=== PATIENT | female | born 1980 | race Caucasian/White ===

== ENCOUNTER 2023-01-04 09:07 | Emergency (ER) | payer BC, SELFPAY ==
--- NOTE | ~2023-01-04 | CT_ITS ---
EXAMINATION: CT ANGIOGRAM HEAD CT ANGIOGRAM NECK CLINICAL INFORMATION: Loss of vision. COMPARISON: None available. TECHNIQUE: Initial noncontrast box feeder imaging of the head and neck was performed. Noncontrast head CT was also performed. Test bolus sequences followed by intravenous administration 70 mL of Omnipaque 350. Helical imaging was performed in the axial plane from the aortic arch to the skull vertex. Delayed postcontrast imaging of the head was also performed. The data was processed at the cytopathology technologist's workstation for generation of MIP sequences. Angled MIPs and volume rendered reformatted images were also generated at an offline 3D workstation. Stenoses are assessed in accordance with NASCET criteria unless otherwise indicated. This CT examination was performed using dose optimization techniques as appropriate, variously including the following: *Automated exposure control. *Adjustment of mA and/or kV according to patient size (this includes techniques or standardized protocols for targeted exams where dose is matched to indication/reason for exam; i.e. extremities or head). *Use of iterative reconstruction technique. DLP: 2255 mGy-cm FINDINGS: CT Head: There is no evidence of acute intracranial hemorrhage or edematous territorial infarction. Carey-white matter differentiation is preserved. There is no abnormal attenuation within the brain parenchyma. The ventricles are normal in morphology and size. No evidence for obstructive hydrocephalus. No abnormal mass effect or midline shift. No extra-axial fluid collections. No pathologic intra-axial enhancement or regional oligemia. No acute soft tissue or osseous abnormalities. Mild mucosal thickening of the paranasal sinuses. The mastoid air cells and middle ear cavities are clear. CT Neck: Changes of prior thyroidectomy. The remaining cervical soft tissues are within normal limits. Straightening of the normal cervical lordosis. Advanced degenerative disc disease at C5-C6. Moderate degenerative disc disease from C6-T1. Facet and uncovertebral joint arthropathy leads to osseous encroachment on the neural foramina from C5-T1. CT Upper Chest: The visualized lung apices and upper mediastinum are within normal limits. Neck CTA: Aortic Arch: Normal contour and caliber. Classic 3 vessel branching pattern of the aortic arch. Great Vessel Origins: No significant stenosis of the branch origins. Right Common Carotid Artery: No focal stenosis or occlusion. Cervical Right Internal Carotid Artery: Normal opacification without focal stenosis or occlusion. Left Common Carotid Artery: No focal stenosis or occlusion. Cervical Left Internal Carotid Artery: Normal opacification without focal stenosis or occlusion. Cervical Right Vertebral Artery: Co-dominant. No focal stenosis or occlusion. Cervical Left Vertebral Artery: Co-dominant. No focal stenosis or occlusion. Brain CTA: Intracranial Internal Carotid Arteries: No focal stenosis or occlusion. Right Anterior Cerebral Artery: The A1 segment is diminutive. Normal opacification of the distal RISSA segments. Left Anterior Cerebral Artery: Normal A1 segment. Normal opacification of the distal RISSA segments. Anterior Communicating Artery: Normal. Right Middle Cerebral Artery: Normal M1 segment of the MCA without focal stenosis or occlusion. Normal arborization of the distal segments. Left Middle Cerebral Artery: Normal M1 segment of the MCA without focal stenosis or occlusion. Normal arborization of the distal segments. Right Vertebral Artery: Normal V4 segment. Normal opacification of the proximal segments of the posterior inferior cerebellar artery. Left Vertebral Artery: Normal V4 segment. Normal opacification of the proximal segments of the posterior inferior cerebellar artery. Basilar Artery: Normal without focal stenosis or occlusion. Normal appearance of the proximal superior cerebellar arteries. Right Posterior Cerebral Artery: Normal P1 segment. Normal opacification of the distal [employer] segments. Left Posterior Cerebral Artery: Normal P1 segment. Normal opacification of the distal [employer] segments. Right dominant transverse/sigmoid sinuses. The left-sided transverse/sigmoid sinuses are hypoplastic. Otherwise, normal opacification of the superior sagittal, straight, transverse, and sigmoid sinuses. CT/CT angio head neck IMPRESSION: 1. No evidence of acute intracranial hemorrhage or edematous territorial infarction. 2. CTA of the head and neck without proximal occlusion or flow-limiting stenosis.
[2023-01-04 09:17] VITALS: BP 123/73; PULSE 60; RESP 18; TEMP 36.7; O2SAT 99; BMI 23.4
--- NOTE | 2023-01-04 09:58 | ED_ITS ---
HPI - General Adult General Chief complaint: General Medical Stated complaint: Loss vision R eye/Dizziness Time Seen by Provider: 01/04/23 09:57 Source: patient Mode of arrival: ambulatory Limitations: no limitations History of Present Illness HPI narrative: Patient was getting mail, got dizzy felt off balance and then noticed she couldn't see out of her right eye but the left eye was also blurry lasting 7 minutes. Patient continued to stand leaned over the chair. she felt like her she saw white when her eye was closed. Then both eyes cleared up, no residual headache. This happened 2 years ago patient had a head CT and saw the eye doctors and found nothing. Denies weakness or numbness to one side. Patient has had headaches once a month. Onset (ago): minute(s) Severity: mild Related Data Allergies Allergy/AdvReac Type Severity Reaction Status Date / Time codeine Allergy Hives Verified 01/04/23 09:19 Review of Systems 2 Review of Systems: Yes all other systems are reviewed and are negative Neurologic: Denies Sensory deficit (Neuro) [facility] Social History Social History Alcohol intake: current Alcohol intake frequency: a few times a month Smoked in Last 30 Days: No Use of substances other than those prescribed or required for medical reasons: No Advance Directives: Yes Advance Directives Information Provided: Yes Advance Directives on File: No Patient : No Physical Exam ED Vital Signs: Vital Signs - 24 hr 01/04/23 09:17 01/04/23 10:01 01/04/23 12:46 Temperature 98.1 F Pulse Rate 60 56 63 Respiratory Rate 18 18 14 Blood Pressure 123/73 128/74 117/79 Pulse Oximetry 99 100 99 Oxygen Delivery Method Room Air Room Air Room Air BMI result Body Mass Index 23.4 Const General: healthy appearing Nutritional Appearance: average body habitus Orientation/consciousness: oriented to person and patient oriented x3 Limitations: no limitations HENMT Head: Yes normal to inspection Ears: external ears normal General nose exam: Normal external nose present Mouth: Normal oral and palatal mucosa present and oropharynx normal Throat: Yes posterior oropharynx normal Eyes General: appearance normal, both eyes and all related structures Neck Neck: Yes normal visual inspection Chest Chest palpation & inspection: normal inspection of the chest Resp Auscultation: clear to auscultation bilaterally Cardio Jugular venous distension: no JVD Rate: regular rate Rhythm: regular rhythm Heart sounds: S1 normal heart sound present and S2 normal heart sound present GI Inspection: Yes normal to inspection Palpation (GI): Soft to palpation, nontender and No hepatosplenomegaly present Auscultation: normal bowel sounds General: Yes no CVA tenderness Back/Spine/Pelvis Back: no CVA tenderness Skin General skin exam: no rashes or lesions noted Neuro General: oriented to person and patient oriented x3 Cranial nerves: Yes CN's II-XII intact bilaterally Motor exam (neuro): 5/5 motor strength present throughout Sensory Exam: No Sensory deficit (Neuro) Extrem General: Yes normal to inspection Psych Appearance: grossly normal Course Reevaluation(s) Reevaluation #1: in her history patient describes multiple events of ocular migraine, her CTA was negative, no vascular disease will dc home Time: 13:47 Medications Administered Discontinued Medications Generic Name Dose Route Start Last Admin Trade Name Freq PRN Reason Stop Dose Admin Diphenhydramine HCl 25 mg 01/04/23 10:14 01/04/23 11:14 Diphenhydramine Hcl 50 Mg/Ml Vial IVPUSH 01/04/23 10:15 25 mg ONCE ONE Administration Iohexol 100 ml 01/04/23 12:17 01/04/23 12:17 Iohexol 350 Mg/Ml 100 Ml Infus..Btl IV 01/04/23 12:18 70 ml ONCE ONE Administration Methylprednisolone Sodium Succinate 125 mg 01/04/23 10:14 01/04/23 11:15 Methylprednisolone Sod Succ 125 Mg/2 Ml Vial IVPUSH 01/04/23 10:15 125 mg ONCE ONE Administration Medical Decision Making Differential Diagnosis Differential Diagnoses: The differential diagnosis associated with the presentation includes (Stroke, retinal occlusion, occular migraine, near syncope, vasovagal were all considered) Admission/Observation Consideration of admission/observation: Escalation of care including admission/observation considered upon arrival patient was considered for admission Lab Data MDM Lab Attestation statement: I reviewed the patient's lab results. (normal labs, normal wbc) 01/04/23 10:22 01/04/23 10:22 Labs: Lab Results 01/04/23 01/04/23 Range/Units 10:22 10:49 WBC 7.2 (4.8-10.8) X10*3/uL RBC 4.31 (4.20-5.50) X10*6/uL Hgb 13.3 (12.0-16.0) g/dl Hct 38.3 (37.0-47.0) % MCV 88.9 (80.0-98.0) fL MCH 30.9 (27.0-33.0) pg MCHC 34.7 (31.0-35.0) g/dl RDW 11.9 (11.0-16.0) % Plt Count 263 (160-400) X10*3/uL MPV 9.6 (9.4-12.3) fL Immature Gran % (Auto) 0.3 (0.0-0.4) % Neut % (Auto) 72.0 (45-73) % Lymph % (Auto) 17.5 L (20-40) % Mineral % (Auto) 5.7 (2-11) % Eos % (Auto) 3.9 (0-4) % Baso % (Auto) 0.6 (0-2) % Lymph # (Auto) 1.3 (1.2-4.9) X10*3/uL Mineral # (Auto) 0.4 (0.1-1.2) X10*3/uL Eos # (Auto) 0.3 (0.0-0.4) X10*3/uL Baso # (Auto) 0.0 (0.0-0.2) X10*3/uL Abs Immat Gran (auto) 0.02 (0.00-0.03) X10*3/uL Absolute Neuts (auto) 5.2 (2.0-8.3) x10*3/uL Absolute Nucleated RBC 0.000 (0.0-0.012) X10*3/uL Nucleated RBC % (auto) 0.0 (0.0-0.2) /100WBC Sodium 140 (135-145) mmol/L Potassium 4.1 (3.3-5.1) mmol/L Chloride 107 (96-108) mmol/L Carbon Dioxide 24 (22-29) mmol/L Anion Gap 13 (12-20) BUN 10 (9-16) mg/dL Creatinine 0.72 (0.5-1.4) mg/dL Estim Creat Clear Calc 93.3 Estimated GFR > 60 Random Glucose 93 (60-115) mg/dL Calcium 8.9 (8.4-10.2) mg/dL Urine Test NEGATIVE (NEGATIVE) Independent Interpretation I performed an independent interpretation of an: CT Scan (no mass no bleed, djd of spine) Radiology Impression Discussion of test interpretation with radiology: I have reviewed the radiologist's reading. (arteries are normal, no stenosis, no clot) Tests considered The following testing was considered but not selected: MRI of brain and neck were considered but CT scan better test to evaluate the vessels Chronic Conditions Patient?s care impacted by: Other (Migraine) Discharge Plan Discharge Clinical Impression: Ocular migraine Patient Disposition: Home, Self-Care Instructions: Ocular Migraine (ED) Referrals: Physician,Unknown J [Primary Care Provider] - 1 week Interventions: ED Discharge Assessment Last Done: 01/04/23 14:22 Discharge Date/Time: 01/04/23 14:22
--- NOTE | 2023-01-04 09:59 | PC.NURSE ---
pt reports felling suddenly off balance/dizzy while standing, vision loss to the right eye, and blurry vision to left eye. symptoms resolved after a few minutes.
[2023-01-04 10:01] VITALS: BP 128/74; PULSE 56; RESP 18; O2SAT 100
[2023-01-04 10:27] LABS: MANUAL DIFF FLAG NO
[2023-01-04 10:29] LABS: Basophils Percent Auto 0.6 % (0-2); Eosinophils Absolute Auto 0.3 X10*3/uL (0.0-0.4); Eosinophils Percent Auto 3.9 % (0-4); Hematocrit 38.3 % (37.0-47.0); Hemoglobin 13.3 g/dl (12.0-16.0); Imm Gran Abs Auto 0.02 X10*3/uL (0.00-0.03); Imm Gran Pct Auto 0.3 % (0.0-0.4); Lymphocytes Absolute Auto 1.3 X10*3/uL (1.2-4.9); Lymphocytes Percent Auto 17.5 % (20-40); Mean Corpuscular HGB Conc 34.7 g/dl (31.0-35.0); Mean Corpuscular Hemoglobin 30.9 pg (27.0-33.0); Mean Corpuscular Volume 88.9 fL (80.0-98.0); Mean Platelet Volume 9.6 fL (9.4-12.3); Monocytes Absolute Auto 0.4 X10*3/uL (0.1-1.2); Monocytes Percent Auto 5.7 % (2-11); Neutrophils Absolute Auto 5.2 x10*3/uL (2.0-8.3); Platelet Count 263 X10*3/uL (160-400); Red Blood Count 4.31 X10*6/uL (4.20-5.50); Red Cell Distribution Width 11.9 % (11.0-16.0); White Blood Count 7.2 X10*3/uL (4.8-10.8)
[2023-01-04 10:41] LABS: Anion Gap 13 (12-20); Blood Urea Nitrogen 10 mg/dL (9-16); Calcium 8.9 mg/dL (8.4-10.2); Carbon Dioxide 24 mmol/L (22-29); Chloride 107 mmol/L (96-108); Creatinine Clr Calc Pharmacy 93.3; Estimated Glomerular Filt Rate > 60; Glucose Random 93 mg/dL (60-115); Potassium 4.1 mmol/L (3.3-5.1); Sodium 140 mmol/L (135-145)
[2023-01-04 10:58] LABS: UPreg QC Valid YES; Urine Pregnancy NEGATIVE (NEGATIVE)
[2023-01-04] MEDS: diphenhydrAMINE HCL 50 MG/ML VIAL 25 MG IVPUSH (11:14)
[2023-01-04] MEDS: methylPREDNISolone Sod Succ 125 MG/2 ML VIAL IVPUSH (11:15)
[2023-01-04] MEDS: iohexoL 350 MG/ML 100 ML INFUS..BTL IV (12:17)
[2023-01-04 12:46] VITALS: BP 117/79; PULSE 63; RESP 14; O2SAT 99
== END 2023-01-04 14:22 | disposition home or self-care (01) ==
PROVIDERS: Emergency Provider Emergency Medicine
DX: G43.109 Migraine with aura, not intractable, without status migrainosus (principal); H54.61 Unqualified visual loss, right eye, normal vision left eye; R42 Dizziness and giddiness; H53.8 Other visual disturbances; Z79.899 Other long term (current) drug therapy
CPT/HCPCS: 36415; 70496; 70498; 80048; 81025; 85025; 96374; 96375; 99284; J1200; J2930; Q9967

== ENCOUNTER 2023-08-10 17:51 | Emergency (ER) | payer BC, SELFPAY ==
[2023-08-10 18:00] VITALS: BMI 24.8
--- NOTE | 2023-08-10 19:28 | ED_ITS ---
HPI - General Adult General Chief complaint: Dizziness Stated complaint: numbness and dizziness Time Seen by Provider: 08/10/23 18:29 History of Present Illness HPI narrative: The patient is a 43-year-old woman who was on a control pill because of endometriosis. She is otherwise quite healthy. She says that she was at home doing nothing in particular when she started to feel that her left arm was numb. She also felt that her tongue became numb. She told her daughter. Her ramin walker told her to call 911. The daughter was also concerned that the patient was speaking strangely. By the time paramedics arrived the patient to normal. The patient estimates estimates the duration of her symptoms was about 2 minutes. The patient herself does not believe that she had any difficulty speaking. The patient does not believe that her left arm was weak. There is no report of any facial asymmetry. Patient was going to decline ambulance transport but she apparently felt lightheaded when she stood up when paramedics were there. She then agreed to come to the hospital. Related Data Allergies Allergy/AdvReac Type Severity Reaction Status Date / Time codeine Allergy Hives Verified 08/10/23 18:07 Review of Systems Review of Systems: Yes all other systems are reviewed and are negative [facility] Social History Social History Alcohol intake: current Alcohol intake frequency: a few times a month Advance Directives: No Advance Directives Information Provided: No Physical Exam ED Vital Signs: Vital Signs - 24 hr 08/10/23 20:49 08/10/23 21:06 Temperature 0 F L Pulse Rate 78 78 Respiratory Rate 16 16 Blood Pressure 127/77 127/77 Pulse Oximetry 98 98 Oxygen Delivery Method Room Air Room Air BMI result Body Mass Index 24.8 Const Other: The patient is awake, alert, and looks entirely well. She has the appearance of an ordinarily healthy looking 43-year-old. She does not seem in any distress or show any signs of illness HENMT Other: Face is symmetrical. Mucous membranes moist Eyes Other: Pupils are round equal, conjunctivae are clear, extraocular movements intact Neck Other: No JVD Resp Effort & Inspection: normal respiratory effort Auscultation: clear to auscultation bilaterally Cardio Rate: regular rate Rhythm: regular rhythm Heart sounds: S1 normal heart sound present and S2 normal heart sound present Skin Other: Skin is dry and unremarkable Neuro Other: The patient is awake, alert, pleasant, cooperative. Mental status is normal. Eye movements are intact, visual campa are intact, face is symmetrical, speech is without dysarthria or aphasia, strength is normal in all 4 extremities, no pronator drift. Finger-nose is normal. Heel-arauz is normal. NIH stroke scale is 0 Extrem Other: No peripheral edema, no calf swelling or tenderness Medications Administered Discontinued Medications Generic Name Dose Route Start Last Admin Trade Name Johny PRN Reason Stop Dose Admin Aspirin 325 mg 08/10/23 20:45 08/10/23 21:02 Aspirin 325 Mg Tablet PO 08/10/23 20:46 325 mg ONCE ONE Administration Medical Decision Making Medical Decision Making [facility] Narrative: The patient is a 43-year-old female who presents with a 2 minute episode of neurological symptoms that include left arm numbness and tongue numbness. Apparently the patient's daughter thought there was some speech difficulty although the patient denies this. The patient has a history of migraine phenomenon and last fall had a CT angiogram of the head and neck as part of an evaluation for symptoms ultimately attributed to migraine phenomenon. She had no acute vascular findings on her CT angiogram 7 months ago. The patient is a nonsmoker. The patient's presentation raises the question of a possible TIA. The patient does not seem at high risk for TIA given that she is only 43 and does not have any vascular history or history of hypertension, diabetes, elevated cholesterol, or smoking. My 1 concern is that she is on a control pill which could potentially raise her risk of thromboembolic events and in this case could potentially have something like a paradoxical embolism if she had a patent foramina ovale. The patient was very eager to not be hospitalized. Her EKG shows normal sinus rhythm. Given that her episode was quite brief her ABCD2 is low. I think it is very unlikely that hospitalization for a TIA workup would be likely to find any discrete treatable issues. I think it would be reasonable for the patient to start taking an aspirin a day and to stop her control pill. Contact your regular doctor in the morning to arrange further evaluation of this episode. The patient is agreeable to this plan and is very eager to be discharged. Discharge Plan Discharge Clinical Impression: Left sided numbness Patient Disposition: Home, Self-Care Instructions: Transient Ischemic Attack (ED) Additional Instructions: It is possible you had a transient ischemic attack today, what we call a TIA. At this point I think it would be reasonable for you to go home. I would recommend that you stop taking her control pill. Additionally I would recommend you take an aspirin daily until further advice from your doctor. Please call your doctor in the morning to make a prompt follow-up appointment. Again: Stop your control pill for the time being. Take a regular aspirin 325 mg daily for the time being. See your doctor promptly. Return to the emergency room if you feel significantly worse. Referrals: Meseret Kate NP [Primary Care Provider] - (Possible TIA) Interventions: ED Discharge Assessment Last Done: 08/10/23 21:06 Discharge Date/Time: 08/10/23 21:08 Print Language: Kosovan
--- NOTE | 2023-08-10 19:29 | ECG_ITS ---
Test Reason : SOB Blood Pressure : / mmHG Vent. Rate : 068 BPM Atrial Rate : 068 BPM P-R Int : 144 ms QRS Dur : 082 ms QT Int : 414 ms P-R-T Axes : 113 138 127 degrees QTc Int : 440 ms Suspect limb lead reversal, interpretation assumes no reversal Normal sinus rhythm Right axis deviation Abnormal ECG No previous ECGs available Referred By: Bran Madden Electronically Signed By:NOREEN TIJERINA
--- NOTE | 2023-08-10 20:39 | PC.NURSE ---
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
[2023-08-10 20:49] VITALS: BP 127/77; PULSE 78; RESP 16; O2SAT 98
[2023-08-10] MEDS: Aspirin 325 MG TABLET PO (21:02)
[2023-08-10 21:06] VITALS: BP 127/77; PULSE 78; RESP 16; TEMP -17.7; TEMP 0; O2SAT 98
--- NOTE | 2023-08-10 21:06 | PC.NURSE ---
Medicated per JUN. VSS. Plan for discharge.
== END 2023-08-10 21:08 | disposition home or self-care (01) ==
PROVIDERS: Emergency Provider Emergency Medicine; PCP Nurse Practitioner Adult Health
DX: R20.0 Anesthesia of skin (principal); R42 Dizziness and giddiness
CPT/HCPCS: 93005; 99283; 99284

== ENCOUNTER → 2023-08-10 19:29 | Outpatient (BNV) | payer BC, SELFPAY | PROVIDERS: Emergency Provider Emergency Medicine; PCP Nurse Practitioner Adult Health; Visit Provider Internal Medicine | DX: R94.31 Abnormal electrocardiogram [ECG] [EKG] (principal) | CPT/HCPCS: 93010 ==

== ENCOUNTER 2024-02-04 09:48 | Emergency (ER) | payer BC, SELFPAY ==
[2024-02-04 10:00] VITALS: BP 121/84; PULSE 67; RESP 20; TEMP 36.7; O2SAT 97; BMI 22.6
--- NOTE | 2024-02-04 10:10 | ECG_ITS ---
Test Reason : SOB Blood Pressure : / mmHG Vent. Rate : 061 BPM Atrial Rate : 061 BPM P-R Int : 124 ms QRS Dur : 082 ms QT Int : 418 ms P-R-T Axes : 000 141 143 degrees QTc Int : 420 ms Normal sinus rhythm Right axis deviation Abnormal ECG When compared with ECG of 10-AUG-2023 20:37, No significant change was found Referred By: Generic ED Physician Electronically Signed By:Blade Martínez
[2024-02-04 10:31] LABS: MANUAL DIFF FLAG NO
[2024-02-04 10:34] LABS: Basophils Percent Auto 0.5 % (0-2); Eosinophils Absolute Auto 0.2 X10*3/uL (0.0-0.4); Eosinophils Percent Auto 2.9 % (0-4); Hematocrit 38.2 % (37.0-47.0); Hemoglobin 13.7 g/dl (12.0-16.0); Imm Gran Abs Auto 0.02 X10*3/uL (0.00-0.03); Imm Gran Pct Auto 0.4 % (0.0-0.4); Lymphocytes Absolute Auto 1.3 X10*3/uL (1.2-4.9); Lymphocytes Percent Auto 23.9 % (20-40); Mean Corpuscular HGB Conc 35.9 g/dl (31.0-35.0); Mean Corpuscular Hemoglobin 31.8 pg (27.0-33.0); Mean Corpuscular Volume 88.6 fL (80.0-98.0); Mean Platelet Volume 9.7 fL (9.4-12.3); Monocytes Absolute Auto 0.4 X10*3/uL (0.1-1.2); Monocytes Percent Auto 6.7 % (2-11); Neutrophils Absolute Auto 3.6 x10*3/uL (2.0-8.3); Neutrophils Percent Auto 65.6 % (45-73); Platelet Count 189 X10*3/uL (160-400); Red Blood Count 4.31 X10*6/uL (4.20-5.50); Red Cell Distribution Width 11.7 % (11.0-16.0); White Blood Count 5.5 X10*3/uL (4.8-10.8)
--- NOTE | 2024-02-04 11:00 | PC.NURSE ---
a&ox4. vss and up to date. pt presents to the ED w/ epigastric pain radiating to shoulder blades bilaterally for the past few days. pt reports nausea that worsens w/ eating. reports 4 episodes of vomiting on tuesday but has not vomited since. denies any episodes of diarrhea. labs obtained in triage. no sob/wob noted. respirations even/unlabored. plan of care ongoing. call phillips placed within reach.
[2024-02-04 11:07] LABS: Appearance Urine Clear; Color Urine Yellow; Glucose Urine UA Negative (Negative); Leukocyte Esterase Urine Trace (Negative); Nitrite Urine Negative (Negative); Specific Gravity - Urine <= 1.005 (1.005-1.025); UMIC TRIGGER UACC YES; Urine Blood Negative (Negative); Urine Ketones Negative (Negative); Urine Protein Negative (Neg-Trace)
[2024-02-04 11:09] LABS: Alanine Aminotransferase 22 U/L (0-31); Albumin Level 4.1 g/dL (3.5-5.0); Alkaline Phosphatase 64 U/L (39-117); Anion Gap 12 (12-20); Aspartate Amino Transferase 18 U/L (5-31); Bilirubin Total 0.7 mg/dL (0.0-1.0); Blood Urea Nitrogen 14 mg/dL (9-16); Calcium 9.2 mg/dL (8.4-10.2); Carbon Dioxide 26 mmol/L (22-29); Chloride 105 mmol/L (96-108); Creatinine Clr Calc Pharmacy 89.8; Estimated Glomerular Filt Rate > 60; Glucose Random 107 mg/dL (60-115); Lipase 14 U/L (8-78); Potassium 3.8 mmol/L (3.3-5.1); Sodium 139 mmol/L (135-145); Total Protein 6.4 g/dL (6.5-8.0)
[2024-02-04 11:12] LABS: Bacteria Urine None Seen (None Seen); Hyaline Casts Urine 0-2 /LPF (0-2); RBC Urine 0-2 /HPF (0-2); Squamous Epithelial Cell Urine 0-2 /HPF (0-2); WBC Urine 0-5 /HPF (0-5)
[2024-02-04 11:13] LABS: HCG Quantitative < 2 mIU/mL; Troponin-I High Sensitivity < 2.7 ng/L (<3.5-17.0)
--- NOTE | 2024-02-04 11:55 | ED_ITS ---
HPI - General Adult General Chief complaint: Abdominal Pain Stated complaint: abd pain quest gall bladder Time Seen by Provider: 02/04/24 11:54 Source: patient Mode of arrival: ambulatory Limitations: no limitations History of Present Illness ED Provider: zana ROMEO narrative: Patient is a 43-year-old female presenting to the emergency department with complaint of epigastric pain radiating through to back since Tuesday night. Tuesday attempted to eat breakfast and vomited, unable to tolerate any food without vomiting on Tuesday. Has been able to eat/drink since but states even a few bites of food exacerbates pain. Denies fevers. Denies diarrhea or constipation. Tried Tums and omeprazole without relief. Called PCP but was referred to the ED. complaint: epigastric pain Onset (ago): day(s) Quality: burning Pain Consistency: colicky Relieving factors: none Exacerbating factors: eating Associated symptoms: nausea/vomiting Treatments prior to arrival: other Related Data Previous Rx's ?Medication ?Instructions ?Recorded ondansetron 4 mg disintegrating 4 mg PO Q8H PRN nausea and 02/04/24 tablet vomiting #10 tabs sucralfate 1 gram tablet 1 g PO BID #20 tabs 02/04/24 Allergies Allergy/AdvReac Type Severity Reaction Status Date / Time codeine Allergy Hives Verified 02/04/24 10:03 Review of Systems 2 Review of Systems: As per hPI Yes all other systems are reviewed and are negative Constitutional: Constitutional: Reports as per HPI [facility] Social History Social History Alcohol intake: current Alcohol intake frequency: a few times a month Advance Directives: No Advance Directives Information Provided: No Physical Exam ED Vital Signs: Vital Signs - 24 hr 02/04/24 10:00 02/04/24 12:54 Temperature 98.1 F 98.1 F Pulse Rate 67 58 Respiratory Rate 20 14 Blood Pressure 121/84 129/80 Pulse Oximetry 97 100 Oxygen Delivery Method Room Air Room Air BMI result Body Mass Index 22.6 Vital signs have been reviewed and appear to be correct. Blood pressure normal. Heart rate normal. Respiratory rate normal. Temperature normal. Oxygen saturation normal. Const General: cooperative, healthy appearing and no acute distress Orientation/consciousness: oriented to person, oriented to place, oriented to time and patient oriented x3 Limitations: no limitations HENMT Head: Yes normocephalic and Yes atraumatic Ears: external ears normal General nose exam: Normal external nose present Face and sinus: Yes face symmetric Mouth: oropharynx normal and moist mucous membranes Throat: Yes uvula midline Eyes Pupils: Equal, round and reactive pupils present Neck Neck: Yes normal visual inspection and Yes supple Resp Effort & Inspection: normal respiratory effort and able to speak in complete sentences Auscultation: clear to auscultation bilaterally Cardio Rate: regular rate Rhythm: regular rhythm Heart sounds: S1 normal heart sound present and S2 normal heart sound present GI Inspection: Yes normal to inspection Palpation (GI): Soft to palpation and Tenderness to palpation present (GI) in the epigastrum Auscultation: normoactive bowel sounds General: Yes no CVA tenderness Back/Spine/Pelvis Back: no CVA tenderness Skin General skin exam: elasticity normal and turgor normal Neuro General: oriented to person, oriented to place, oriented to time, patient oriented x3, moves all extremities, no focal motor deficits and CN's II-XI intact bilaterally Cranial nerves: Yes Equal, round and reactive pupils present Cognition (Neuro): normal cognition Extrem General: Yes full ROM, Yes no pedal edema and Yes no calf tenderness Psych Mental Status: mental status grossly normal Affect: normal affect Thought process: Normal thought process present Medications Administered Discontinued Medications Generic Name Dose Route Start Last Admin Trade Name Freq PRN Reason Stop Dose Admin Al Hydroxide/Mg Hydroxide 15 ml 02/04/24 12:01 02/04/24 12:36 Magnesium Hydrox/Alum Hydrox 30 Ml Oral.Susp PO 02/04/24 12:02 15 ml ONCE ONE Administration Lidocaine HCl 5 ml 02/04/24 12:01 02/04/24 12:36 Lidocaine Hcl Viscous 2 % 15 Ml Solution MUCOUS MEM 02/04/24 12:02 5 ml ONCE ONE Administration Medical Decision Making Medical Decision Making MDM Narrative: Patient is a 43-year-old female presenting to the emergency department with complaint of epigastric pain radiating through to back since Tuesday night. On exam patient is awake, A+Ox3, VS WNL, afebrile, normal neurological exam without focal deficits, physical exam findings as above. Given reported symptoms and physical exam findings, initial differential includes GERD, gastritis, PUD. Unlikely ACS. Labs notable for no leukocytosis, no electrolyte abnormalities, normal transaminases, negative troponin, negative HCG. Do not feel imaging is indicated at this time. Patient reports that symptoms improved with Maalox and lidocaine given in the ED but after eating a few crackers heartburn persisted. Discussed with patient that she will likely need to follow-up with GI for upper endoscopy and further evaluation. Will send referral. Advised her to follow up with PCP as well. Return precautions discussed. Patient verbalized understanding of and agreement with plan. Differential Diagnosis Differential Diagnoses: The differential diagnosis associated with the presentation includes As per [facility]. Admission/Observation Consideration of admission/observation: Escalation of care including admission/observation considered Patient would have been admitted to the hospital had their work up had any findings where hospital admission was appropriate and their clinical presentation warranted hospital admission. Lab Data [facility] Lab Attestation statement: I reviewed the patient's lab results. As per [facility] 02/04/24 10:25 02/04/24 10:25 Labs: Lab Results 02/04/24 02/04/24 Range/Units 10:25 11:01 WBC 5.5 (4.8-10.8) X10*3/uL RBC 4.31 (4.20-5.50) X10*6/uL Hgb 13.7 (12.0-16.0) g/dl Hct 38.2 (37.0-47.0) % MCV 88.6 (80.0-98.0) fL MCH 31.8 (27.0-33.0) pg MCHC 35.9 H (31.0-35.0) g/dl RDW 11.7 (11.0-16.0) % Plt Count 189 D (160-400) X10*3/uL MPV 9.7 (9.4-12.3) fL Immature Gran % (Auto) 0.4 (0.0-0.4) % Neut % (Auto) 65.6 (45-73) % Lymph % (Auto) 23.9 (20-40) % [place] % (Auto) 6.7 (2-11) % Eos % (Auto) 2.9 (0-4) % Baso % (Auto) 0.5 (0-2) % Lymph # (Auto) 1.3 (1.2-4.9) X10*3/uL [place] # (Auto) 0.4 (0.1-1.2) X10*3/uL Eos # (Auto) 0.2 (0.0-0.4) X10*3/uL Baso # (Auto) 0.0 (0.0-0.2) X10*3/uL Abs Immat Gran (auto) 0.02 (0.00-0.03) X10*3/uL Absolute Neuts (auto) 3.6 (2.0-8.3) x10*3/uL Absolute Nucleated RBC 0.000 (0.0-0.012) X10*3/uL Nucleated RBC % (auto) 0.0 (0.0-0.2) /100WBC Sodium 139 (135-145) mmol/L Potassium 3.8 (3.3-5.1) mmol/L Chloride 105 (96-108) mmol/L Carbon Dioxide 26 (22-29) mmol/L Anion Gap 12 (12-20) BUN 14 (9-16) mg/dL Creatinine 0.74 (0.5-1.4) mg/dL Estim Creat Clear Calc 89.8 Estimated GFR > 60 Random Glucose 107 (60-115) mg/dL Calcium 9.2 (8.4-10.2) mg/dL Total Bilirubin 0.7 (0.0-1.0) mg/dL AST 18 (5-31) U/L ALT 22 (0-31) U/L Alkaline Phosphatase 64 (39-117) U/L Troponin I High Sens < 2.7 (<3.5-17.0) ng/L Total Protein 6.4 L (6.5-8.0) g/dL Albumin 4.1 (3.5-5.0) g/dL Lipase 14 (8-78) U/L Beta HCG, Quant < 2 mIU/mL Urine Color Yellow Urine Appearance Clear Urine pH 7.0 (5.0-9.0) Ur Specific [place] <= 1.005 (1.005-1.025) Urine Protein Negative (Neg-Trace) mg/dL Urine Glucose (UA) Negative (Negative) mg/dL Urine Ketones Negative (Negative) mg/dL Urine Blood Negative (Negative) Urine Nitrite Negative (Negative) Ur Leukocyte Esterase Trace H (Negative) Urine RBC 0-2 (0-2) /HPF Urine WBC 0-5 (0-5) /HPF Ur Squamous Epith Cells 0-2 (0-2) /HPF Urine Bacteria None Seen (None Seen) Hyaline Casts 0-2 (0-2) /LPF External Record Review External record reviewed: Inpatient record, Office record and Outpatient record Prescription Management I considered prescription management with: Other Discharge Plan Discharge Clinical Impression: Acute epigastric pain Patient Disposition: Home, Self-Care Instructions: Gastroesophageal Reflux Disease (DC), Epigastric Pain (ED), Upper Endoscopy (DC) Additional Instructions: You have been evaluated in the emergency department today for abdominal pain. Your evaluation did not show evidence of medical conditions requiring emergent intervention at this time. You are being prescribed ondansetron for nausea as well as sucralfate which you should take half an hour before eating. We recommend that you follow up with the gastroenterology office, call to schedule an appointment. Please schedule an appointment with your primary care physician as well. Return to the emergency department if you experience worsening or uncontrolled pain, fevers 100.4? F or greater, recurrent vomiting, inability to tolerate food or fluids by mouth, bloody stools or vomit, black or tarry stools, or any other concerning symptoms. Prescriptions: New ondansetron 4 mg tablet,disintegrating 4 mg PO Q8H PRN (Reason: nausea and vomiting) Qty: 10 0RF sucralfate 1 gram tablet 1 g PO BID Qty: 20 0RF Referrals: [facility] [Provider Group] Print Language: Fijian
[2024-02-04] MEDS: Lidocaine HCl Viscous 2 % 15 ML SOLUTION 5 ML MUCOUS MEM (12:36)
[2024-02-04] MEDS: Magnesium Hydrox/Alum Hydrox 30 ML ORAL.SUSP 15 ML PO (12:36)
--- NOTE | 2024-02-04 12:39 | PC.NURSE ---
medication administered per provider order. effectiveness pending.
[2024-02-04 12:54] VITALS: BP 129/80; PULSE 58; RESP 14; TEMP 36.7; O2SAT 100
--- NOTE | 2024-02-04 13:10 | PC.NURSE ---
vss and up to date. pt reports slight improvement w/ medication administration but reports intermittent nausea. pt states that she thinks nausea is d/t not having food recently. pt provided w/ saltines.
[2024-02-04 14:41] VITALS: BP 129/80; PULSE 58; RESP 14; TEMP 36.7; O2SAT 100
== END 2024-02-04 14:41 | disposition home or self-care (01) ==
PROVIDERS: Emergency Provider Emergency Medicine Emergency Medical Services; PCP Nurse Practitioner Adult Health
DX: R10.13 Epigastric pain (principal)
CPT/HCPCS: 36415; 80053; 81001; 83690; 84484; 84702; 85025; 93005; 99283; 99284

== ENCOUNTER → 2024-02-04 10:10 | Outpatient (BNV) | payer BC, SELFPAY | PROVIDERS: Emergency Provider Emergency Medicine Emergency Medical Services; PCP Nurse Practitioner Adult Health; Visit Provider Internal Medicine Cardiovascular Disease | DX: R94.31 Abnormal electrocardiogram [ECG] [EKG] (principal) | CPT/HCPCS: 93010 ==